=== PATIENT | male | born 1955 | race Caucasian/White ===

== ENCOUNTER 2024-04-06 10:58 | Emergency (ER) | payer MEDICARE ==
[~2024-04-06] VITALS: Ht 177.8 cm; Wt 69.2 kg
[2024-04-06 11:11] VITALS: BP 163/77; TEMP 97.3; O2SAT 100
[2024-04-06] MEDS: KETOROLAC 60MG 2ML VIAL IM ONE (13:10)
[2024-04-06] MEDS: methocarbamoL 750 MG TAB PO ONE (13:10)
[2024-04-06] MEDS ORDERED: IBUP-1022 PO (13:48)
[2024-04-06] MEDS ORDERED: PRED10TA2 PO (13:48)
[2024-04-06] MEDS ORDERED: METH-1164 PO (13:48)
== END 2024-04-06 14:10 | disposition home or self-care (01) ==
LOC: M ED 10:58
DX: M54.41 Lumbago with sciatica, right side (principal); Z88.0 Allergy status to penicillin
CPT/HCPCS: 96372; 99283; J1885